=== PATIENT | male | born 1940 | race Caucasian/White ===

== ENCOUNTER 2016-08-18 06:06 | Day surgery (SDC) | payer MEDICARE, BC ==
[~2016-08-18 06:06] MED LIST: BL IBUPROFEN200 MG PO; FISH OIL1000 MG PO; FLEXERIL PO; LABETALOL100 MG PO; LISINOPRIL20 MG PO; MAGNESIUM-OX400 MG PO; MELOXICAM7.5 MG PO; MULTI VIT PO; NEXIUM40 M1 OR; POTASSIUM99 MG PO; PRAVASTATIN10 MG PO; SM ASPIRIN81 MG OR; ZOLPIDEM10 MG PO
[2016-08-18] MEDS ORDERED: LABETALOL100 MG PO (06:20)
[2016-08-18 09:19] VITALS: BP 184/79
== END 2016-08-18 09:40 | disposition home or self-care (01) ==
LOC: ORM 06:06
PROVIDERS: ATTEND Anesthesiology Pain Medicine
PROC: 3E0T33Z Introduction of Anti-inflammatory into Peripheral Nerves and Plexi, Percutaneous Approach (ICD-10-PCS; principal; 2016-08-18)
PROC: 3E0T3BZ Introduction of Anesthetic Agent into Peripheral Nerves and Plexi, Percutaneous Approach (ICD-10-PCS; 2016-08-18)
DX: M54.2 Cervicalgia (principal)

== ENCOUNTER 2016-08-25 07:51 | Day surgery (SDC) | payer MEDICARE, BC ==
[~2016-08-25] VITALS: Ht 182.9 cm; Wt 95.3 kg
[2016-08-25 10:02] VITALS: BP 172/74
== END 2016-08-25 10:26 | disposition home or self-care (01) ==
LOC: ORM 07:51
PROVIDERS: ATTEND Anesthesiology Pain Medicine
PROC: 01513ZZ Destruction of Cervical Nerve, Percutaneous Approach (ICD-10-PCS; principal; 2016-08-25)
DX: M54.2 Cervicalgia (principal); M48.02 Spinal stenosis, cervical region; R51 Headache

== ENCOUNTER 2016-09-08 07:27 | Day surgery (SDC) | payer MEDICARE, BC ==
[~2016-09-08] VITALS: Ht 182.9 cm; Wt 95.3 kg
[2016-09-08] MEDS ORDERED: NORCO1 TA2 PO (10:21)
[2016-09-08 10:25] VITALS: BP 152/55
== END 2016-09-08 10:26 | disposition home or self-care (01) ==
LOC: ORM 07:27
PROVIDERS: ATTEND Anesthesiology Pain Medicine
PROC: 3E0T3TZ Introduction of Destructive Agent into Peripheral Nerves and Plexi, Percutaneous Approach (ICD-10-PCS; principal; 2016-09-08)
DX: M54.2 Cervicalgia (principal); R51 Headache

== ENCOUNTER 2017-07-06 09:23 | Day surgery (SDC) | payer MEDICARE, BC ==
[~2017-07-06] VITALS: Ht 182.9 cm; Wt 95.3 kg
[~2017-07-06 09:23] MED LIST changes: +NORCO1 TA2 PO
[2017-07-06 12:59] VITALS: BP 172/74
== END 2017-07-06 13:10 | disposition home or self-care (01) ==
LOC: ORM 09:23
PROVIDERS: ATTEND Anesthesiology Pain Medicine
PROC: 3E0T3TZ Introduction of Destructive Agent into Peripheral Nerves and Plexi, Percutaneous Approach (ICD-10-PCS; principal; 2017-07-06)
DX: M54.2 Cervicalgia (principal); R51 Headache; M47.812 Spondylosis without myelopathy or radiculopathy, cervical region

== ENCOUNTER 2018-06-28 05:52 | Day surgery (SDC) | payer MEDICARE, BC ==
[~2018-06-28] VITALS: Ht 182.9 cm; Wt 95.3 kg
[2018-06-28 07:58] VITALS: BP 158/86
== END 2018-06-28 08:16 | disposition home or self-care (01) ==
LOC: ORM 05:52
PROVIDERS: ATTEND Anesthesiology Pain Medicine
PROC: 3E0T3TZ Introduction of Destructive Agent into Peripheral Nerves and Plexi, Percutaneous Approach (ICD-10-PCS; principal; 2018-06-28)
PROC: BR141ZZ Fluoroscopy of Cervical Facet Joint(s) using Low Osmolar Contrast (ICD-10-PCS; 2018-06-28)
DX: M54.2 Cervicalgia (principal); M12.9 Arthropathy, unspecified; R51 Headache

== ENCOUNTER 2018-07-12 05:52 | Day surgery (SDC) | payer MEDICARE, BC ==
[2018-07-12 08:04] VITALS: BP 153/62
== END 2018-07-12 08:34 | disposition home or self-care (01) ==
LOC: ORM 05:52
PROVIDERS: ATTEND Anesthesiology Pain Medicine
PROC: 3E0T3TZ Introduction of Destructive Agent into Peripheral Nerves and Plexi, Percutaneous Approach (ICD-10-PCS; principal; 2018-07-12)
PROC: BR141ZZ Fluoroscopy of Cervical Facet Joint(s) using Low Osmolar Contrast (ICD-10-PCS; 2018-07-12)
DX: M54.2 Cervicalgia (principal); M12.9 Arthropathy, unspecified; R51 Headache; R42 Dizziness and giddiness

== ENCOUNTER → 2018-07-25 | Outpatient (REF) | payer MEDICARE, BC ==
[2018-07-25 07:56] LABS: HEMATOCRIT 40.6 % (39.0-50.0); HEMOGLOBIN 13.5 g/dl (14.0-18.0); IMMATURE GRANULOCYTES 0.3 % (0.0-5.0); MEAN CORPUSCULAR HGB 32.9 pG CALC (26.0-32.0); MEAN CORPUSCULAR HGB CONC 33.3 g/L CALC (32.0-36.0); NEUT# 4.38 thou/uL (1.82-7.42); RED BLOOD COUNT 4.1 mill/uL (4.70-6.10); RED CELL DISTRI WIDTH 11.8 % (11.5-15.5)
[2018-07-25 10:15] LABS: URINE BILIRUBIN - DIPSTICK NEGATIVE (NEGATIVE); URINE BLOOD DIPSTICK TRACE-INTACT (NEGATIVE); URINE COLOR YELLOW; URINE GLUCOSE - DIPSTICK NEGATIVE (NEGATIVE); URINE KETONE NEGATIVE (NEGATIVE); URINE LEUK ESTERASE NEGATIVE (NEGATIVE); URINE NITRITE - DIPSTICK NEGATIVE (Negative); URINE PROTEIN - DIPSTICK NEGATIVE (NEG-TRACE); URINE SPECIFIC GRAVITY 1.025; URINE UROBILINOGEN - DIPSTICK 0.2 E.U./dL (0.2)
[2018-07-25 11:21] LABS: ALBUMIN 4.1 g/dL (3.2-5.0); ALKALINE PHOSPHATASE 66 u/l (38-126); ANION GAP 14 (6-22 (CALC)); BILIRUBIN, TOTAL 0.7 mg/dL (0.0-1.4); BUN 25 mg/dL (8-23); BUN/CREATININE RATIO 22 (12-20 (CALC)); CALCULATED LDLCHOLESTEROL 60 mg/dL (62-129 (CALC)); CARBON DIOXIDE 27 mmol/l (22-30); CHLORIDE 104 mmol/l (95-108); CHOLESTEROL HDL RATIO 2.2 (<4.4 (CALC)); CREATININE 1.1 mg/dL (0.7-1.3); GFR > 60 ML/MIN (>=60 (CALC)); GFR FOR AFR.AMER. > 60 ML/MIN (>=60 (CALC)); HDL CHOLESTEROL 64 mg/dL (>=40); POTASSIUM 4.6 mmol/l (3.5-5.1); SGOT/AST 25 u/l (19-48); SODIUM 140 mmol/l (137-146); TOTAL PROTEIN 6.7 g/dL (6.3-8.2); TRIGLYCERIDES REFLEX TO dLDL 74 mg/dl (30-149); VLDL CHOLESTROL 15 mg/dl (0-38 (CALC))
[2018-07-25 11:28] LABS: TOTAL CHOLESTEROL 139 mg/dl (0-199)
[2018-07-25 11:57] LABS: TSH, 3RD GENERATION 2.25 uIU/mL (0.47 - 4.68)
== END | disposition home or self-care (01) ==
LOC: LAB 07:23
PROVIDERS: ATTEND Family Medicine
DX: R79.9 Abnormal finding of blood chemistry, unspecified (principal); E78.5 Hyperlipidemia, unspecified; I10 Essential (primary) hypertension; Z13.6 Encounter for screening for cardiovascular disorders; Z79.899 Other long term (current) drug therapy; Z13.89 Encounter for screening for other disorder